=== PATIENT | male | born 1940 | race Asian ===

== ENCOUNTER → 2019-06-26 | Outpatient (CLI) | payer MEDICARE, OTHER ==
[2019-06-26 13:11] LABS: BASOPHILS % (AUTO) 0.5 % (0.0-2.0); EOSINOPHILS % (AUTO) 3.6 % (1.0-6.0); HEMATOCRIT 34.3 % (41-53); HEMOGLOBIN 11.4 g/dL (13.5-17.5); LYMPHOCYTES # (AUTO) 1.5 K/uL (1.0-4.8); LYMPHOCYTES % (AUTO) 33.3 % (22.0-44.0); MEAN CORPUSCULAR HGB CONC 33.3 G/dL (31.0-37.0); MEAN CORPUSCULAR VOLUME 93 fL (80-100); MONOCYTES # (AUTO) 0.3 K/uL (0.1-1.0); MONOCYTES % (AUTO) 7.2 % (2.0-9.0); NEUTROPHILS # (AUTO) 2.5 K/uL (1.8-7.7); NEUTROPHILS % (AUTO) 55.4 % (40.0-70.0); PLATELET COUNT (AUTO) 233 K/uL (150-450); RED BLOOD CELL COUNT(AUTO) 3.68 MIL/uL (4.50-5.90)
[2019-06-26 13:38] LABS: ALBUMIN 4.1 g/dL (3.4-5.0); BILIRUBIN,DIRECT 0.1 mg/dL (0.00-0.20); BILIRUBIN,TOTAL 0.5 mg/dL (0.1-1.0); CALCIUM, TOTAL 9.3 mg/dL (8.8-10.5); CREATININE 1.25 mg/dL (0.60-1.30); FREE T4 (FREE THYROXINE) 0.84 ng/dL (0.76-1.46); POTASSIUM 4.7 mmol/L (3.5-5.1); THYROID STIMULATING HORMONE 2.02 uIU/mL (0.36-3.74); TOTAL PROTEIN, SERUM 7.9 g/dL (6.4-8.2)
[2019-06-26 14:19] LABS: ERYTHROCYTE SEDIMENTATION RATE 30 MM/HR (0-15)
[2019-06-27 10:06] LABS: FOLATE SERUM 14.2 ng/mL (5.4-)
== END | disposition home or self-care (01) ==
LOC: RADMN 12:34
PROVIDERS: ATTEND Physical Medicine & Rehabilitation Spinal Cord Injury Medicine
DX: M17.11 Unilateral primary osteoarthritis, right knee (principal); M17.12 Unilateral primary osteoarthritis, left knee; M54.12 Radiculopathy, cervical region; M76.51 Patellar tendinitis, right knee; M76.52 Patellar tendinitis, left knee; M11.262 Other chondrocalcinosis, left knee; M11.261 Other chondrocalcinosis, right knee; M25.78 Osteophyte, vertebrae; M43.12 Spondylolisthesis, cervical region; M46.02 Spinal enthesopathy, cervical region; M41.86 Other forms of scoliosis, lumbar region; M43.16 Spondylolisthesis, lumbar region
CPT/HCPCS: 72040; 72100; 82164; 82306; 82607; 82746; 83735; 84439; 84443; 85651; 86592

== ENCOUNTER → 2020-06-04 | Outpatient (CLI) | payer MEDICARE, OTHER | END | disposition home or self-care (01) | LOC: RADMN 10:48 | PROVIDERS: ATTEND Physical Medicine & Rehabilitation Spinal Cord Injury Medicine | DX: I67.82 Cerebral ischemia (principal); G31.9 Degenerative disease of nervous system, unspecified | CPT/HCPCS: 70551 ==

== ENCOUNTER → 2020-10-12 | Outpatient (CLI) | payer MEDICARE, OTHER | END | disposition home or self-care (01) | LOC: RADMN 09:46 | PROVIDERS: ATTEND Physical Medicine & Rehabilitation Spinal Cord Injury Medicine | DX: S83.271A Complex tear of lateral meniscus, current injury, right knee, initial encounter (principal); M25.461 Effusion, right knee; M25.462 Effusion, left knee; M71.22 Synovial cyst of popliteal space [Baker], left knee; M71.21 Synovial cyst of popliteal space [Baker], right knee; M17.0 Bilateral primary osteoarthritis of knee; M47.26 Other spondylosis with radiculopathy, lumbar region; M47.27 Other spondylosis with radiculopathy, lumbosacral region; M47.25 Other spondylosis with radiculopathy, thoracolumbar region; M48.061 Spinal stenosis, lumbar region without neurogenic claudication; M48.062 Spinal stenosis, lumbar region with neurogenic claudication; M48.07 Spinal stenosis, lumbosacral region; X58.XXXA Exposure to other specified factors, initial encounter; Y93.89 Activity, other specified; Y92.89 Other specified places as the place of occurrence of the external cause; Y99.8 Other external cause status | CPT/HCPCS: 72148; 73721 ==

== ENCOUNTER → 2021-04-07 | Outpatient (CLI) | payer MEDICARE, OTHER | END | disposition still patient (30) | LOC: RADMN 13:55 | PROVIDERS: ATTEND Physical Medicine & Rehabilitation Spinal Cord Injury Medicine | DX: S43.422A Sprain of left rotator cuff capsule, initial encounter (principal); M19.012 Primary osteoarthritis, left shoulder; M77.02 Medial epicondylitis, left elbow; M25.422 Effusion, left elbow; X58.XXXA Exposure to other specified factors, initial encounter; Y93.89 Activity, other specified; Y92.89 Other specified places as the place of occurrence of the external cause; Y99.8 Other external cause status | CPT/HCPCS: 73221 ==

== ENCOUNTER 2024-03-17 12:26 | Inpatient (IN) | payer MEDICARE, OTHER ==
[~2024-03-17] VITALS: Ht 162.6 cm; Wt 64.0 kg
[2024-03-17] MEDS ORDERED: 0.9% SODIUM CHLORIDE 10 ML SYRINGE IVP PRN (12:30)
[2024-03-17 12:43] LABS: COVID AG,FIA SOURCE NASAL SWAB
[2024-03-17 13:13] LABS: INFLUENZA TYPE A NEGATIVE FOR TYPE A (NEGATIVE); INFLUENZA TYPE B NEGATIVE FOR TYPE B (NEGATIVE); SARS-COV2 (COVID) ANTIGEN,FIA Negative (Negative)
[2024-03-17 13:28] LABS: BASOPHILS % (AUTO) 0.1 % (0.0-2.0); EOSINOPHILS % (AUTO) 0 % (1.0-6.0); HEMATOCRIT 39.3 % (41-53); HEMOGLOBIN 12.1 g/dL (13.5-17.5); LYMPHOCYTES # (AUTO) 0.9 K/uL (1.0-4.8); LYMPHOCYTES % (AUTO) 4.8 % (22.0-44.0); MEAN CORPUSCULAR HEMOGLOBIN 29.5 pg (26.0-34.0); MEAN CORPUSCULAR HGB CONC 30.7 G/dL (31.0-37.0); MEAN CORPUSCULAR VOLUME 96 fL (80-100); MONOCYTES # (AUTO) 0.6 K/uL (0.1-1.0); MONOCYTES % (AUTO) 3.4 % (2.0-9.0); NEUTROPHILS # (AUTO) 16.5 K/uL (1.8-7.7); PLATELET COUNT (AUTO) 339 K/uL (150-450); RED CELL DISTRIBUTION WIDTH 14.5 % (11.5-14.5)
[2024-03-17 13:29] LABS: NEUTROPHILS % (AUTO) 91.7 % (40.0-70.0)
[2024-03-17] MEDS: SODIUM CHLORIDE 0.9% 1,250 ML IV ONE (13:33)
[2024-03-17 13:35] LABS: PROTHROMBIN TIME 12.2 SEC (9.4-11.6)
[2024-03-17 13:43] LABS: ANION GAP 14 mmol/L (8-16); CALCIUM, TOTAL 9.1 mg/dL (8.8-10.5); CARBON DIOXIDE 27 mmol/L (22-29); CHLORIDE 119 mmol/L (98-107); CREATININE 2.97 mg/dL (0.60-1.30); GLOMERULAR FILTR. RATE CALC 20 mL/min (>60); GLUCOSE,RANDOM 147 mg/dL (70-110); POTASSIUM 4.3 mmol/L (3.5-5.1); SODIUM SERUM 159 mmol/L (136-145); UREA NITROGEN, BLOOD 50 mg/dL (7-18)
[2024-03-17 13:56] LABS: LACTIC ACID 4.6 mmol/L (0.4-2.0)
[2024-03-17] MEDS: ACETAMINOPHEN 1000 MG/ISO-OSM 100 ML IV ONE (14:01)
[2024-03-17 14:10] LABS: ALKALINE PHOSPHATASE 98 U/L (46-116); ASPARTATE AMINOTRANSFERASE 207 U/L (15-37); BILIRUBIN,TOTAL 0.5 mg/dL (0.1-1.0); TOTAL PROTEIN, SERUM 7.8 g/dL (6.4-8.2); TROPONIN I-HIGH SENSITIVITY 1492 ng/L (<76)
[2024-03-17 14:11] LABS: ALANINE AMINOTRANSFERASE 123 U/L (12-78); B-TYPE NATRIURETIC PEPTIDE 925 pg/mL (0-100)
[2024-03-17] MEDS: CEFEPIME HCL 1 GM in DEXTROSE 5%-WATER 50 ML IV ONE (14:44)
[2024-03-17 15:48] LABS: APPEARANCE,URINE HAZY (CLEAR); BILIRUBIN,URINE NEGATIVE (NEGATIVE); COLOR,URINE YELLOW (YELLOW); GLUCOSE, URINE (UA) NEGATIVE (NEGATIVE); KETONES,URINE NEGATIVE (NEGATIVE); LEUKOCYTE ESTERASE ,URINE NEGATIVE (NEGATIVE); NITRATE,URINE NEGATIVE (NEGATIVE); OCCULT BLOOD,URINE SMALL (NEGATIVE); PROTEIN,URINE 30-70 mg/dL (NEGATIVE); UROBILINOGEN,URINE <=1.0 mg/dL (<=1.0)
[2024-03-17 16:01] LABS: BACTERIA,URINE None Seen /HPF (None Seen); WBC,URINE 0-2 /HPF (0-5)
[2024-03-17] MEDS: SODIUM CHLORIDE 0.9% 1,000 ML IV ONE (16:26)
[2024-03-17 17:54] LABS: TROPONIN I-HIGH SENSITIVITY 1944 ng/L (<76)
[2024-03-17] MEDS: ASPIRIN 300 MG RECTAL SUPPOSITORY PR ONE (18:50)
[2024-03-17] MEDS ORDERED: MELA5TAB40 PO (19:52)
[2024-03-17] MEDS ORDERED: CALC-761 PO (19:52)
[2024-03-17] MEDS ORDERED: OXYC10TA59 PO (19:52)
[2024-03-17] MEDS ORDERED: LIDO700A15 TP (19:52)
[2024-03-17] MEDS ORDERED: MULT-1366 PO (19:52)
[2024-03-17] MEDS ORDERED: ENOX40SY14 SQ (19:52)
[2024-03-17] MEDS ORDERED: HEPARIN SODIUM,PORCINE 5,000 UNITS/ML VIAL IVP PRN (20:45)
[2024-03-17] MEDS ORDERED: BISACODYL 10 MG RECTAL RECTAL SUPPOSITORY PR PRN (20:45)
[2024-03-17] MEDS ORDERED: ZOLPIDEM TARTRATE 5 MG TABLET PO PRN (20:45)
[2024-03-17] MEDS ORDERED: ONDANSETRON HCL 4 MG/2 ML VIAL IVP PRN (20:45)
[2024-03-17] MEDS ORDERED: MAGNESIUM HYDROXIDE SUSPENSION 30 ML UDCUP PO PRN (20:45)
[2024-03-17] MEDS ORDERED: MORPHINE SULFATE 2 MG/ML SYRINGE IVP PRN (20:45)
[2024-03-17] MEDS ORDERED: ACETAMINOPHEN 325 MG TABLET PO PRN (20:45)
[2024-03-17] MEDS ORDERED: HYDROCODONE/ACETAMINOPHEN 5-325 MG TABLET PO PRN (20:45)
[2024-03-17] MEDS: DOCUSATE SODIUM 100 MG CAPSULE PO SCH (21:00)
[2024-03-17] MEDS: HEPARIN SODIUM,PORCINE 5,000 UNITS/ML VIAL IVP ONE (21:08)
[2024-03-17] MEDS: HEPARIN SODIUM 25000 UNITS/D5W 250 ML IV PRN (21:08)
[2024-03-17] MEDS: DEXTROSE 5%-WATER 1,000 ML IV ONE (21:33)
[2024-03-17 21:47] LABS: BASOPHILS % (AUTO) 0.2 % (0.0-2.0); EOSINOPHILS % (AUTO) 0.1 % (1.0-6.0); HEMATOCRIT 38.4 % (41-53); HEMOGLOBIN 11.6 g/dL (13.5-17.5); LYMPHOCYTES # (AUTO) 2.1 K/uL (1.0-4.8); LYMPHOCYTES % (AUTO) 13.8 % (22.0-44.0); MEAN CORPUSCULAR HEMOGLOBIN 29.6 pg (26.0-34.0); MEAN CORPUSCULAR HGB CONC 30.2 G/dL (31.0-37.0); MEAN CORPUSCULAR VOLUME 98 fL (80-100); MONOCYTES # (AUTO) 0.5 K/uL (0.1-1.0); MONOCYTES % (AUTO) 3.1 % (2.0-9.0); NEUTROPHILS # (AUTO) 12.6 K/uL (1.8-7.7); NEUTROPHILS % (AUTO) 82.8 % (40.0-70.0); PLATELET COUNT (AUTO) 288 K/uL (150-450); RED BLOOD CELL COUNT(AUTO) 3.91 MIL/uL (4.50-5.90); WHITE BLOOD COUNT (AUTO) 15.2 K/uL (4.5-11.0)
[2024-03-17 22:30] VITALS: BP 110/40; PULSE 69; RESP 18; TEMP 98; O2SAT 99
[2024-03-17 23:57] LABS: PROTHROMBIN TIME 13.5 SEC (9.4-11.6)
[2024-03-18] VITALS (7 sets, daily range): BP systolic 99–153; BP diastolic 54–78; PULSE 47–86; RESP 17–19; TEMP 97.9–98.8; O2SAT 90–100
[2024-03-18 07:06] LABS: BASOPHILS % (AUTO) 0.2 % (0.0-2.0); EOSINOPHILS % (AUTO) 0.3 % (1.0-6.0); HEMATOCRIT 35.1 % (41-53); HEMOGLOBIN 11.2 g/dL (13.5-17.5); LYMPHOCYTES # (AUTO) 0.7 K/uL (1.0-4.8); LYMPHOCYTES % (AUTO) 9.1 % (22.0-44.0); MEAN CORPUSCULAR HEMOGLOBIN 30.5 pg (26.0-34.0); MEAN CORPUSCULAR HGB CONC 31.8 G/dL (31.0-37.0); MEAN CORPUSCULAR VOLUME 96 fL (80-100); MONOCYTES # (AUTO) 0.2 K/uL (0.1-1.0); MONOCYTES % (AUTO) 2.7 % (2.0-9.0); NEUTROPHILS # (AUTO) 7.1 K/uL (1.8-7.7); PLATELET COUNT (AUTO) 252 K/uL (150-450); RED BLOOD CELL COUNT(AUTO) 3.67 MIL/uL (4.50-5.90); RED CELL DISTRIBUTION WIDTH 14.2 % (11.5-14.5); WHITE BLOOD COUNT (AUTO) 8.1 K/uL (4.5-11.0)
[2024-03-18 07:07] LABS: NEUTROPHILS % (AUTO) 87.7 % (40.0-70.0)
[2024-03-18 07:10] LABS: TROPONIN I-HIGH SENSITIVITY 1160 ng/L (<76)
[2024-03-18 10:12] LABS: CALCIUM, TOTAL 7.8 mg/dL (8.8-10.5); CREATININE 2.66 mg/dL (0.60-1.30); MAGNESIUM 2.1 mg/dL (1.80-2.40); PHOSPHORUS 3.7 mg/dL (2.5-4.9); POTASSIUM 3.9 mmol/L (3.5-5.1)
[2024-03-18] MEDS: PANTOPRAZOLE SODIUM 40 MG/VIAL IVP SCH (10:32)
[2024-03-18 19:09] LABS: CREATININE,URINE RANDOM 166.8 mg/dL (30.0-125.0); SODIUM,URINE RANDOM 16 mmol/l (20-110); UREA NITROGEN,URINE RANDOM 847 mg/dL (350-1000)
[2024-03-18 19:12] LABS: APPEARANCE,URINE HAZY (CLEAR); BILIRUBIN,URINE NEGATIVE (NEGATIVE); COLOR,URINE YELLOW (YELLOW); GLUCOSE, URINE (UA) NEGATIVE (NEGATIVE); KETONES,URINE NEGATIVE (NEGATIVE); LEUKOCYTE ESTERASE ,URINE NEGATIVE (NEGATIVE); NITRATE,URINE NEGATIVE (NEGATIVE); OCCULT BLOOD,URINE MODERATE (NEGATIVE); PROTEIN,URINE 30-70 mg/dL (NEGATIVE); SPECIFIC GRAVITIY, URINE 1.022 (1.003-1.030); UROBILINOGEN,URINE <=1.0 mg/dL (<=1.0)
[2024-03-18 19:16] LABS: BACTERIA,URINE Few /HPF (None Seen); SQUAMOUS EPITHELIAL CELL,UR Rare /LPF (None Seen); WBC,URINE 0-2 /HPF (0-5)
[2024-03-19 04:01] VITALS: BP 126/59; PULSE 81; RESP 18; TEMP 97.8; O2SAT 99
[2024-03-19 07:04] LABS: CALCIUM, TOTAL 8.4 mg/dL (8.8-10.5); CREATININE 1.88 mg/dL (0.60-1.30); MAGNESIUM 2.1 mg/dL (1.80-2.40); POTASSIUM 3.4 mmol/L (3.5-5.1)
[2024-03-19] MEDS: HEPARIN SODIUM,PORCINE 5,000 UNITS/ML VIAL IVP PRN (07:41)
[2024-03-19 07:45] VITALS: BP 127/75; PULSE 84; RESP 18; TEMP 98.5; O2SAT 95
[2024-03-19] MEDS: DEXTROSE 5%-WATER 1,000 ML IV SCH (08:30)
[2024-03-19 11:11] VITALS: BP 124/62; PULSE 78; RESP 19; TEMP 98; O2SAT 92
[2024-03-19 15:48] VITALS: BP 119/69; PULSE 80; RESP 19; TEMP 98.3; O2SAT 94
[2024-03-19 19:25] VITALS: BP 119/64; PULSE 81; RESP 20; TEMP 98.8; O2SAT 98
[2024-03-20 01:14] VITALS: BP 106/72; PULSE 83; RESP 19; TEMP 99.1; O2SAT 93
[2024-03-20 06:44] LABS: CALCIUM, TOTAL 8.3 mg/dL (8.8-10.5); CREATININE 1.49 mg/dL (0.60-1.30); MAGNESIUM 1.7 mg/dL (1.80-2.40); PHOSPHORUS 1.9 mg/dL (2.5-4.9); POTASSIUM 3.3 mmol/L (3.5-5.1)
[2024-03-20 08:01] VITALS: BP 135/66; PULSE 107; RESP 18; TEMP 102.9; O2SAT 91
[2024-03-20] MEDS: POTASSIUM PHOS,M-BASIC-D-BASIC 20 MEQ in DEXTROSE 5%-WATER 100 ML IV ONE (08:33)
[2024-03-20] MEDS: *CLINICAL-LEVOFLOXACIN IVPB DOSING CLINICAL ONE (10:13)
[2024-03-20] MEDS: ACETAMINOPHEN 650 MG RECTAL SUPPOSITORY PR PRN (10:32)
[2024-03-20] MEDS ORDERED: SODIUM CHLORIDE 0.9% 1,000 ML IV ONE (10:45)
[2024-03-20] MEDS: MAGNESIUM SULFATE 1 GM in DEXTROSE 5%-WATER 50 ML IV ONE (10:48)
[2024-03-20 11:07] LABS: BASOPHILS % (AUTO) 0.5 % (0.0-2.0); EOSINOPHILS % (AUTO) 0.6 % (1.0-6.0); HEMOGLOBIN 10.1 g/dL (13.5-17.5); LYMPHOCYTES # (AUTO) 1.2 K/uL (1.0-4.8); LYMPHOCYTES % (AUTO) 14.9 % (22.0-44.0); MEAN CORPUSCULAR HEMOGLOBIN 29.7 pg (26.0-34.0); MEAN CORPUSCULAR HGB CONC 30.7 G/dL (31.0-37.0); MEAN CORPUSCULAR VOLUME 97 fL (80-100); MONOCYTES # (AUTO) 0.1 K/uL (0.1-1.0); MONOCYTES % (AUTO) 1.5 % (2.0-9.0); NEUTROPHILS # (AUTO) 6.9 K/uL (1.8-7.7); NEUTROPHILS % (AUTO) 82.5 % (40.0-70.0); PLATELET COUNT (AUTO) 218 K/uL (150-450); RED BLOOD CELL COUNT(AUTO) 3.41 MIL/uL (4.50-5.90); RED CELL DISTRIBUTION WIDTH 14.8 % (11.5-14.5); WHITE BLOOD COUNT (AUTO) 8.4 K/uL (4.5-11.0)
[2024-03-20] MEDS: SODIUM CHLORIDE 0.45% 1,000 ML IV ONE (11:10)
[2024-03-20 11:11] VITALS: BP 100/43; PULSE 98; RESP 33; TEMP 100.4; O2SAT 92
[2024-03-20] MEDS: VANCOMYCIN HCL 750 MG in DEXTROSE 5%-WATER 250 ML IV ONE (11:17)
[2024-03-20] MEDS ORDERED: SODIUM CHLORIDE 0.9% 500 ML IV ONE (11:18)
[2024-03-20 12:51] LABS: ABG CARBOXYHEMOGLOBIN 0.3 % (0.5-1.5); ABG HCO3 21.8 mmol/L (21.0-28.0); ABG OXYGEN CONTENT 13.8 mL/dL (15.0-23.0); ABG OXYHEMOGLOBIN 92.8 % (94.0-98.0); ABG PCO2 30 mmHg (32.0-48.0); ABG PH 7.439 (7.350-7.450); ABG TOTAL HEMOGLOBIN 10.5 G/dL (13.5-17.5); PO2, ARTERIAL BG 73.4 mmHg (83.0-108.0); SOURCE, BLOOD GAS ARTERIAL; TEMPERATURE, FAHRENHEIT, BG 100.4 FAHREN (96.0-98.6)
[2024-03-20 12:52] LABS: ALLEN TEST, BLOOD GAS Positive; O2 DEVICE,BLOOD GAS CANNULA (ROOM AIR); SITE, BLOOD GAS RT RADIAL
[2024-03-20 13:12] LABS: APPEARANCE,URINE HAZY (CLEAR); BILIRUBIN,URINE NEGATIVE (NEGATIVE); COLOR,URINE YELLOW (YELLOW); GLUCOSE, URINE (UA) NEGATIVE (NEGATIVE); KETONES,URINE NEGATIVE (NEGATIVE); LEUKOCYTE ESTERASE ,URINE TRACE (NEGATIVE); NITRATE,URINE NEGATIVE (NEGATIVE); OCCULT BLOOD,URINE LARGE (NEGATIVE); PH,URINE 5.5 (5.0-8.0); PROTEIN,URINE 100-200,SEE CONFIRM mg/dL (NEGATIVE); SPECIFIC GRAVITIY, URINE 1.017 (1.003-1.030); UROBILINOGEN,URINE <=1.0 mg/dL (<=1.0)
[2024-03-20] MEDS: LEVOFLOXACIN 250 MG/D5% WATER 50 ML IV SCH (13:22)
[2024-03-20 13:24] LABS: BACTERIA,URINE Few /HPF (None Seen); RBC,URINE 26-50 /HPF (0-2); SULFOSALICYLIC ACID,URINE 1+ (Negative); YEAST,URINE Many /HPF (None Seen)
[2024-03-20 13:25] LABS: SQUAMOUS EPITHELIAL CELL,UR Few /LPF (None Seen); URIC ACID CRYSTALS,URINE Few /LPF (None Seen)
[2024-03-20 14:57] VITALS: BP 101/45; PULSE 64; RESP 23; TEMP 98.3; O2SAT 97
[2024-03-20 19:32] VITALS: BP 108/54; PULSE 77; RESP 22; TEMP 97.8; O2SAT 93
[2024-03-20 23:52] VITALS: BP 134/62; PULSE 77; RESP 20; TEMP 97.9; O2SAT 95
[2024-03-21 03:36] VITALS: BP 119/68; PULSE 76; RESP 20; TEMP 97.8; O2SAT 96
[2024-03-21 07:54] VITALS: BP 119/50; PULSE 76; RESP 18; TEMP 98; O2SAT 97
[2024-03-21 08:01] LABS: CALCIUM, TOTAL 7.6 mg/dL (8.8-10.5); CREATININE 1.19 mg/dL (0.60-1.30); MAGNESIUM 1.8 mg/dL (1.80-2.40); PHOSPHORUS 2.2 mg/dL (2.5-4.9)
[2024-03-21 08:06] LABS: POTASSIUM 2.9 mmol/L (3.5-5.1)
[2024-03-21] MEDS: VANCOMYCIN 500 MG/WATER(PEG) 100 ML IV SCH (08:24)
[2024-03-21] MEDS: POTASSIUM CHL 10 MEQ/WATER 50 ML IV SCH (08:42)
[2024-03-21] MEDS: POTASSIUM CHLORIDE 20 MEQ ER TABLET PO ONE (08:45)
[2024-03-21] MEDS: POTASSIUM PHOS,M-BASIC-D-BASIC 20 MEQ in DEXTROSE 5%-WATER 100 ML IV ONE (10:09)
[2024-03-21] MEDS ORDERED: POTASSIUM CHLORIDE 20 MEQ ER TABLET PO PRN (11:30)
[2024-03-21 12:28] VITALS: BP 126/72; PULSE 105; RESP 18; TEMP 98.6; O2SAT 93
[2024-03-21 16:02] VITALS: BP 122/74; PULSE 56; RESP 17; TEMP 98; O2SAT 97
[2024-03-21 20:00] VITALS: BP 109/64; PULSE 92; RESP 19; TEMP 98.6; O2SAT 92
[2024-03-22] VITALS (9 sets, daily range): BP systolic 96–146; BP diastolic 53–75; PULSE 78–101; RESP 16–19; TEMP 98.2–101.2; O2SAT 91–100
[2024-03-22 05:22] LABS: CALCIUM, TOTAL 7.7 mg/dL (8.8-10.5); CREATININE 1.18 mg/dL (0.60-1.30); POTASSIUM 3.2 mmol/L (3.5-5.1)
[2024-03-22] MEDS: POTASSIUM CHL 10 MEQ/WATER 50 ML IV PRN (05:44)
[2024-03-22] MEDS ORDERED: SODIUM CHLORIDE 0.9% 500 ML IV ONE (08:46)
[2024-03-22] MEDS: VANCOMYCIN HCL 750 MG in DEXTROSE 5%-WATER 250 ML IV SCH (08:49)
[2024-03-22] MEDS: ALBUTEROL SULFATE 2.5 MG/0.5 ML NEB SOLUTION NEB PRN (09:08)
[2024-03-22] MEDS: IPRATROPIUM BROMIDE 0.5 MG/2.5 ML NEB SOLUTION NEB PRN (09:08)
[2024-03-23 03:48] VITALS: BP 115/62; PULSE 80; RESP 20; TEMP 98; O2SAT 98
[2024-03-23 07:23] LABS: CALCIUM, TOTAL 7.6 mg/dL (8.8-10.5); CREATININE 1.4 mg/dL (0.60-1.30); POTASSIUM 3.3 mmol/L (3.5-5.1)
[2024-03-23 07:33] LABS: MAGNESIUM 1.5 mg/dL (1.80-2.40); PHOSPHORUS 2.4 mg/dL (2.5-4.9)
[2024-03-23 08:07] VITALS: BP 137/70; PULSE 78; RESP 18; TEMP 97.8; O2SAT 100
[2024-03-23] MEDS ORDERED: MAGNESIUM OXIDE 400 MG TABLET PO PRN (10:30)
[2024-03-23] MEDS ORDERED: MAGNESIUM SULFATE 4 GM/WATER 100 ML IV PRN (10:30)
[2024-03-23 11:48] VITALS: BP 122/84; PULSE 83; RESP 20; TEMP 98; O2SAT 96
[2024-03-23] MEDS: MAGNESIUM SULFATE 2 GM/WATER 50 ML IV PRN (13:16)
[2024-03-23] MEDS: POTASSIUM CHLORIDE 10% 40 MEQ/30 ML LIQUID UDCUP PO ONE (14:30)
[2024-03-23 15:07] VITALS: BP 104/48; PULSE 81; RESP 19; TEMP 98; O2SAT 96
[2024-03-23] MEDS: SODIUM PHOS,M-BASIC-D-BASIC 20 MMOL in DEXTROSE 5%-WATER 150 ML IV ONE (16:48)
[2024-03-23 20:09] VITALS: BP 122/68; PULSE 87; RESP 19; TEMP 99.2; O2SAT 95
[2024-03-24 00:17] VITALS: BP 139/69; PULSE 92; RESP 18; TEMP 101.2; O2SAT 97
[2024-03-24 04:42] VITALS: BP 150/66; PULSE 86; RESP 18; TEMP 98.8; O2SAT 100
[2024-03-24 06:43] LABS: CALCIUM, TOTAL 8.1 mg/dL (8.8-10.5); CREATININE 1.22 mg/dL (0.60-1.30); POTASSIUM 3.8 mmol/L (3.5-5.1)
[2024-03-24 08:23] VITALS: BP 136/67; PULSE 85; RESP 19; TEMP 98.2; O2SAT 96
[2024-03-24] MEDS: SCOPOLAMINE HYDROBROMIDE 1 MG/72 HOUR PATCH TD SCH (08:27)
[2024-03-24] MEDS: VANCOMYCIN HCL 1 GM/D5% WATER 200 ML IV ONE (09:54)
[2024-03-24 10:53] VITALS: BP 141/70; PULSE 79; RESP 19; TEMP 97.8; O2SAT 95
[2024-03-24] MEDS: LEVOFLOXACIN 750 MG/D5% WATER 150 ML IV SCH (14:00)
[2024-03-24 15:55] VITALS: BP 144/83; PULSE 79; RESP 20; TEMP 99.5; O2SAT 96
[2024-03-24 19:25] VITALS: BP 142/58; PULSE 81; RESP 20; TEMP 98.3; O2SAT 97
[2024-03-25] MEDS ORDERED: VANCOMYCIN HCL 750 MG in DEXTROSE 5%-WATER 250 ML IV SCH (08:00)
== END 2024-03-24 19:45 | disposition hospice, home (50) | DRG 871 ==
LOC: EMS 12:26 → EDH 20:40 → 5S 22:38
PROVIDERS: ADMIT Hospitalist; ATTEND Hospitalist
DX: A41.9 Sepsis, unspecified organism (principal); E43 Unspecified severe protein-calorie malnutrition; G92.8 Other toxic encephalopathy; J96.01 Acute respiratory failure with hypoxia; I21.A1 Myocardial infarction type 2; R53.2 Functional quadriplegia; J69.0 Pneumonitis due to inhalation of food and vomit; E87.0 Hyperosmolality and hypernatremia; N17.9 Acute kidney failure, unspecified; R64 Cachexia; Z20.822 Contact with and (suspected) exposure to COVID-19; N18.9 Chronic kidney disease, unspecified; D63.8 Anemia in other chronic diseases classified elsewhere; I12.9 Hypertensive chronic kidney disease with stage 1 through stage 4 chronic kidney disease, or unspecified chronic kidney disease; E86.0 Dehydration; F03.90 Unspecified dementia, unspecified severity, without behavioral disturbance, psychotic disturbance, mood disturbance, and anxiety; E83.39 Other disorders of phosphorus metabolism; E83.42 Hypomagnesemia; E87.6 Hypokalemia; E78.00 Pure hypercholesterolemia, unspecified; E78.5 Hyperlipidemia, unspecified; R13.10 Dysphagia, unspecified; Z66 Do not resuscitate; Z68.24 Body mass index [BMI] 24.0-24.9, adult
CPT/HCPCS: 36600; 71045; 76770; 80048; 80076; 80202; 81001; 81002; 82040; 82570; 82805; 83605; 83735; 83880; 84100; 84132; 84145; 84300; 84484; 84540; 85025; 85610; 85730; 87040; 87804; 93005; 93306; 94640; 99285; J0131; J0692; J1644; J1956; J2470; J3370; J3475; J3480; J3490; J7040; J7060; 36415-L1; 36415-TC; J7613; X7700